=== PATIENT | female | born 1975 ===

== ENCOUNTER 2018-04-08 17:12 | Emergency (ER) | payer BC, OTHER ==
[2018-04-08 17:12] VITALS: BMI 31.2
[2018-04-08] MEDS ORDERED: Sodium Chloride 0.9% 1,000 ML IV STA (17:51)
--- NOTE | 2018-04-08 18:21 | ED PDOC ---
Syncope/Near Syncope/Dizziness Time Seen by Provider: 04/08/18 17:19 Chief Complaint (Nursing): Syncope Chief Complaint (Provider): Syncope History Per: Patient History/Exam Limitations: no limitations Onset/Duration Of Symptoms: Other (just prior to arrival) Current Symptoms Are (Timing): Still Present Additional Complaint(s): 42 y/o female with a PMHx of fibromyalgia (taking Lyrica) presenting via EMS for evaluation of syncopal episode just prior to arrival. Patient states she was at worship after a 2 hour service and talking to friends. She states her friends saw her becoming faint, she lost consciousness, and her friends caught her before she hit the ground. She denies any head injury. Patient states she didnt know she had lost consciousness until she woke up on the ground. Patient states her friends report the LOC lasted a couple of minutes, but are unsure of the exact duration. Patient is also concerned about her bilateral feet that have had surgery done in February by a rail setter in [place]. Patient reports she was on a trip to [place] for a convention 1 week ago, and returned 2 days ago. She denies headache, chest pain, shortness of breath, nausea, vomiting, abdominal pain, neck pain, and back pain. Patient is reporting some calf and ankle discomfort. PMD: Dr. Bains Past Medical History Reviewed: Historical Data, Nursing Documentation, Vital Signs Vital Signs: Last Vital Signs Temp 97.8 F 04/08/18 17:23 Pulse 78 04/08/18 17:23 Resp 18 04/08/18 17:23 BP 127/81 04/08/18 17:23 Pulse Ox 99 04/08/18 17:23 - Medical History PMH: Arthritis, Asthma, Fibromyalgia (taking Lyrica) Denies: Depression, Chronic Kidney Disease - Surgical History Surgical History: No Surg Hx - Family History Family History: States: Unknown Family Hx - Immunization History Hx Tetanus Toxoid Vaccination: No Hx Influenza Vaccination: No Hx Pneumococcal Vaccination: No - Home Medications Home Medications: Ambulatory Orders Medication Instructions Recorded Albuterol HFA [Ventolin HFA 90 2 puff IH Q4 #1 puff 08/25/16 mcg/actuation (8 g)] Azithromycin [Zithromax] 250 mg PO DAILY #6 tab 08/25/16 Benzonatate [Tessalon Perle] 100 mg PO Q8 PRN #12 capsule 08/25/16 Ondansetron [Zofran Odt] 4 mg PO Q6 PRN #14 odt 08/25/16 predniSONE [predniSONE Tab] 60 mg PO DAILY #12 tab 08/25/16 - Allergies Allergies/Adverse Reactions: Allergies Allergy/AdvReac Type Severity Reaction Status Date / Time IV Dye Allergy Intermediate HIVES Uncoded 08/25/16 13:47 Review of Systems ROS Statement: Except As Marked, All Systems Reviewed And Found Negative Cardiovascular: Negative for: Chest Pain Respiratory: Negative for: Shortness of Breath Gastrointestinal: Negative for: Nausea, Vomiting, Abdominal Pain Musculoskeletal: Negative for: Neck Pain, Back Pain Neurological: Positive for: Other (syncope). Negative for: Headache Physical Exam - Reviewed Nursing Documentation Reviewed: Yes Vital Signs Reviewed: Yes - Physical Exam Appears: Positive for: Well, Non-toxic, No Acute Distress Head Exam: Positive for: ATRAUMATIC, NORMAL INSPECTION, NORMOCEPHALIC Skin: Positive for: Normal Color, Warm. Negative for: Rash Eye Exam: Positive for: EOMI, Normal appearance, PERRL Neck: Positive for: Normal, Painless ROM, Supple Cardiovascular/Chest: Positive for: Regular Rate, Rhythm. Negative for: Murmur Respiratory: Positive for: Normal Breath Sounds. Negative for: Respiratory Distress Gastrointestinal/Abdominal: Positive for: Normal Exam, Soft. Negative for: Tenderness Back: Positive for: Normal Inspection. Negative for: L CVA Tenderness, R CVA Tenderness, Vertebral Tenderness Extremity: Positive for: Calf Tenderness (mild tenderness in bilateral calves, no swelling), Other (2 open wounds to bilateral ankles on both sides laterally by lateral malleolus, no active drainage, no erythema ) Neurologic/Psych: Positive for: Alert, Oriented (x3) - Laboratory Results Result Diagrams: 04/08/18 18:19 04/08/18 18:19 - ECG O2 Sat by Pulse Oximetry: 99 (RA) Pulse Ox Interpretation: Normal Medical Decision Making Medical Decision Makin:49 Impression: Syncopal episode. Differential diagnoses include, but are not limited to vasovagal syncope and dehydration. Plan: -CT head w/o contrast -EKG -Alcohol serum -CMP -Urine drug screen -Troponin I -Urine -Urine dipstick -PTT/PT -1LNS -IV insertion -Glucose, blood, POC -US Duplex LE -Reevaluation Scribe Attestation: Documented by Jeremiah Alvarez, acting as a scribe for Sheila Vegas MD. Provider Scribe Attestation: All medical record entries made by the Scribe were at my direction and personally dictated by me. I have reviewed the chart and agree that the record accurately reflects my personal performance of the history, physical exam, medical decision making, and the department course for this patient. I have also personally directed, reviewed, and agree with the discharge instructions and disposition. 9.30p - CT Head and US LE - both negative. labs and EKG without significant findings. Will discharge. Disposition - Clinical Impression Clinical Impression: Vasovagal syncope - Patient ED Disposition Is Patient to be Admitted: No Doctor Will See Patient In The: Office Counseled Patient/Family Regarding: Diagnosis, Need For Followup - Disposition Referrals: [facility] [Outside] Disposition: Routine/Home Disposition Time: 21:30 Condition: STABLE Instructions: Vasovagal Response (DC) Forms: [employer] (Malaysian) - POA Present On Arrival: Falls Or Trauma
[2018-04-08 18:24] LABS: BASO % 0.6 % (0.0-2.0); EOS # 0.1 K/uL (0.0-0.7); EOS % 0.8 % (0.0-4.0); HEMOGLOBIN 11.7 g/dL (12.0-16.0); LYMPH # 1.6 K/uL (1.0-4.3); LYMPH % 24.9 % (20.0-40.0); MEAN CELL VOLUME 92.1 fl (81.0-99.0); MEAN CORPUSCULAR HEMOGLOBIN 31.6 pg (27.0-31.0); MEAN CORPUSCULAR HGB CONC 34.3 g/dL (33.0-37.0); MEAN PLATELET VOLUME 8.7 fl (7.2-11.7); MONO # 0.4 K/uL (0.0-0.8); MONO % 5.7 % (0.0-10.0); NEUT # 4.5 K/uL (1.8-7.0); RBC 3.71 Mil/uL (3.80-5.20); RED CELL DISTRIBUTION WIDTH 13.4 % (11.5-14.5); WHITE BLOOD COUNT 6.6 K/uL (4.8-10.8)
[2018-04-08 18:35] LABS: ALB/GLOB RATIO 1.2 (1.0-2.1); ALBUMIN 4.3 g/dL (3.5-5.0); ALT/SGPT 21 U/L (9-52); AST/SGOT 30 U/L (14-36); BLOOD UREA NITROGEN 15 mg/dl (7-17); CALCIUM 9.7 mg/dL (8.4-10.2); GFR AFRICAN-AMERICAN > 60; GFR NON-AFRICAN AMERICAN > 60
[2018-04-08 18:38] LABS: INR 1.1; PROTHROMBIN TIME 12.3 Seconds (9.8-13.1)
[2018-04-08 18:40] LABS: PARTIAL THROMBOPLASTIN TIME 28.2 Seconds (25.6-37.1)
[2018-04-08] MEDS ORDERED: Naproxen 500 MG TAB PO ONE ×2 (20:22→21:11)
[2018-04-08 21:58] VITALS: O2SAT 99
[2018-04-08 22:31] VITALS: BP 126/73; PULSE 66; RESP 18; TEMP 98.1
--- NOTE | 2018-04-09 07:57 | CARD ---
APPROVED REPORT Date of service: 04/08/2018 <Conclusion> Normal sinus rhythm Normal ECG
--- NOTE | 2018-04-09 08:12 | CP.PCM.PN ---
Subjective - Date & Time of Evaluation Date of Evaluation: 04/09/18 Time of Evaluation: 08:08 - Subjective Subjective: 42 yo patient presents to ED for syncope and seen in bedside s/p b/l ganglion removal with dehisced surgical incision sites. Presented with bandages on b/l feet and taken off by ED nurse to inspect. States she had surgery for removal at [facility]. States that she has had the dressing on for two weeks and has a follow up appointment at the clinic tomorrow. States she is in no pain and is aware that the incision sites have no fully healed. States her last visit she had her sutures removed. Denies N/V/F/C/SOB/CP/pain in posterior calf. Has no other pedal complaints at this time. PMHx fibromyalgia PSHx b/l removal of ganglion in lateral ankles All IV dye Objective - Vital Signs/Intake and Output Vital Signs (last 24 hours): Temp Pulse Resp BP Pulse Ox 98.1 F 66 18 126/73 99 04/08/18 22:10 04/08/18 22:10 04/08/18 22:10 04/08/18 22:10 04/08/18 22:10 - Labs Labs: 04/08/18 18:19 04/08/18 18:19 PT 12.3 Seconds (9.8-13.1) 04/08/18 18:19 INR 1.1 04/08/18 18:19 APTT 28.2 Seconds (25.6-37.1) 04/08/18 18:19
--- NOTE | 2018-04-09 08:25 | CP.PCM.CON ---
History of Present Illness - History of Present Illness History of Present Illness: 42 yo patient presents to ED for syncope and seen in bedside s/p b/l ganglion removal with dehisced surgical incision sites. Presented with bandages on b/l feet and taken off by ED nurse to inspect. States she had surgery for removal at [facility]. States that she has had the dressing on for two weeks and has a follow up appointment at the clinic tomorrow. States she is in no pain and is aware that the incision sites have no fully healed. States her last visit she had her sutures removed. Denies N/V/F/C/SOB/CP/pain in posterior calf. Has no other pedal complaints at this time. PMHx fibromyalgia PSHx b/l removal of ganglion in lateral ankles All IV dye Past Patient History - Infectious Disease Hx of Infectious Diseases: None - Tetanus Immunizations Tetanus Immunization: Unknown - Past Social History Smoking Status: Never Smoked - CARDIAC Hx Cardiac Disorders: No - PULMONARY Hx Asthma: Yes - NEUROLOGICAL Hx Neurological Disorder: No - HEENT Hx HEENT Problems: No - RENAL Hx Chronic Kidney Disease: No - ENDOCRINE/METABOLIC Hx Endocrine Disorders: No - HEMATOLOGICAL/ONCOLOGICAL Hx Blood Disorders: No - INTEGUMENTARY Hx Dermatological Problems: No - MUSCULOSKELETAL/RHEUMATOLOGICAL Hx Arthritis: Yes - GASTROINTESTINAL Hx Gastrointestinal Disorders: No - GENITOURINARY/GYNECOLOGICAL Hx Genitourinary Disorders: No - PSYCHIATRIC Hx Depression: No - SURGICAL HISTORY Hx Hysterectomy: Yes Hx Orthopedic Surgery: Yes (shoulder) - ANESTHESIA Hx Anesthesia: Yes Hx Anesthesia Reactions: No Hx Malignant Hyperthermia: No Meds Allergies/Adverse Reactions: Allergies Allergy/AdvReac Type Severity Reaction Status Date / Time IV Dye Allergy Intermediate HIVES Uncoded 08/25/16 13:47 Physical Exam - Constitutional Appears: Well, Non-toxic, No Acute Distress - Head Exam Head Exam: ATRAUMATIC, NORMOCEPHALIC - Extremities Exam Additional comments: Vasc: DP and PT pulses palpable 2/4 b/l; temp gradient warm to cool from proximal to distal; cap refill <3 seconds to all digits; mild edema in ankles and lower legs nonpitting b/l Derm: right: dehisced surgical incision site on the right lateral foot/ankle with granular base; no drainage, no pus, no streaking, mild periwound erythema, no clinical signs of infection left: hyperkeratotic wound margin, no evidence of dehiscence, no pain, no drainage, no pus, no clinical signs of infection skin temp and turgor within normal limits other than surgical wounds neuro: protective and gross sensation within normal limits ortho: no bony pathology present, surgical incisions on lateral ankle/feet b/l, no pain on palpation, mild tenderness on palpation of calf b/l - Neurological Exam Neurological exam: Alert, Oriented x3 - Psychiatric Exam Psychiatric exam: Normal Affect, Normal Mood Results - Vital Signs Recent Vital Signs: Last Vital Signs Temp 98.1 F 04/08/18 22:10 Pulse 66 04/08/18 22:10 Resp 18 04/08/18 22:10 BP 126/73 04/08/18 22:10 Pulse Ox 99 04/08/18 22:10 - Labs Result Diagrams: 04/08/18 18:19 04/08/18 18:19 Labs: Laboratory Results - last 24 hr 04/08/18 04/08/18 04/08/18 18:19 18:19 18:19 WBC 6.6 RBC 3.71 L Hgb 11.7 L Hct 34.1 MCV 92.1 MCH 31.6 H MCHC 34.3 RDW 13.4 Plt Count 201 MPV 8.7 Neut % (Auto) 68.0 Lymph % (Auto) 24.9 Braxton % (Auto) 5.7 Eos % (Auto) 0.8 Baso % (Auto) 0.6 Neut # (Auto) 4.5 Lymph # (Auto) 1.6 Braxton # (Auto) 0.4 Eos # (Auto) 0.1 Baso # (Auto) 0.0 PT 12.3 INR 1.1 APTT 28.2 Sodium 142 Potassium 3.4 L Chloride 104 Carbon Dioxide 28 Anion Gap 13 BUN 15 Creatinine 0.7 Est GFR ( Amer) > 60 Est GFR (Non-Af Amer) > 60 Random Glucose 89 Calcium 9.7 Total Bilirubin 0.6 AST 30 ALT 21 Alkaline Phosphatase 89 Troponin I < 0.0120 Total Protein 7.7 Albumin 4.3 Globulin 3.5 Albumin/Globulin Ratio 1.2 Alcohol, Quantitative < 10 Assessment & Plan - Assessment and Plan (Free Text) Assessment: 42 yo presents to ED with syncopal episode with b/l dehisced surgical incision sites for removal of ganglions in lateral feet/ankles Plan: Patient seen and evaluated Wounds redressed with telfa and DSD Told to continue to follow up with hair specialist who performed surgery and attend appointment tomorrow Stable for discharge from podiatry standpoint Thank you for the consult - Date & Time Date: 04/08/18 Time: 18:30
--- NOTE | 2018-04-09 11:31 | CT ---
Date of service: 04/08/2018 PROCEDURE: CT HEAD WITHOUT CONTRAST. HISTORY: syncope COMPARISON: None available. TECHNIQUE: Axial computed tomography images were obtained through the head/brain without intravenous contrast. Radiation dose: Total exam DLP = 947.47 mGy-cm. This CT exam was performed using one or more of the following dose reduction techniques: Automated exposure control, adjustment of the mA and/or kV according to patient size, and/or use of iterative reconstruction technique. FINDINGS: HEMORRHAGE: No intracranial hemorrhage. BRAIN: Normal verdin-white matter differentiation and density are appreciated throughout the cerebrum and cerebellum with the brainstem appearing unremarkable as well. There is no mass effect. There is no suspicious extra-axial fluid collection and the midline brain anatomy appears diffusely unremarkable. VENTRICLES: Unremarkable. No hydrocephalus. CALVARIUM: Normal verdin-white matter differentiation and density are appreciated throughout the cerebrum and cerebellum with the brainstem appearing unremarkable as well. There is no mass effect. There is no suspicious extra-axial fluid collection and the midline brain anatomy appears diffusely unremarkable. PARANASAL SINUSES: Unremarkable as visualized. No significant inflammatory changes. MASTOID AIR CELLS: Unremarkable as visualized. No inflammatory changes. OTHER FINDINGS: None. IMPRESSION: Unremarkable noncontrast CT of the Head. Concordant preliminary report from [facility], 04/08/2018.
--- NOTE | 2018-04-09 12:28 | US ---
Date of service: 04/08/2018 PROCEDURE: Bilateral lower extremity venous duplex Doppler. HISTORY: Bilateral lower extremity pain and swelling. Relevant surgical history: Ankle procedure 02/28/2018. COMPARISON: None available. TECHNIQUE: Bilateral common femoral, superficial femoral, popliteal and posterior tibial veins were evaluated. Flow was assessed with color Doppler, compressibility, assessment of phasic flow and augmentation response. FINDINGS: COMMON FEMORAL VEIN: Right CFV: Unremarkable. Left CFV: Unremarkable. SUPERFICIAL FEMORAL VEIN: Right SFV: Unremarkable. Left SFV: Unremarkable. POPLITEAL VEIN: Right Popliteal: Unremarkable. Left Popliteal: Unremarkable. POSTERIOR TIBIAL VEIN: Right PTV: Unremarkable. Left PTV: Unremarkable. OTHER FINDINGS: None. IMPRESSION: No evidence of deep venous thrombosis.
== END 2018-04-08 22:20 | disposition home or self-care (01) ==
LOC: H.ER 17:12
DX: R55 Syncope and collapse (principal); M79.7 Fibromyalgia; M79.606 Pain in leg, unspecified
CPT/HCPCS: 70450; 80053; 81025; 82948; 84484; 85025; 85610; 85730; 93005; 93970; 99285; G0480; J7030